=== PATIENT | male | born 1960 | race Caucasian/White ===

== ENCOUNTER 2018-08-28 17:54 | Emergency (ER) | payer OTHER ==
[~2018-08-28] VITALS: Ht 167.6 cm; Wt 79.4 kg
[2018-08-28] MEDS ORDERED: VANCOMYCIN IV 200 ML ONE (18:50)
[2018-08-28] MEDS: VANCOMYCIN IV 1,000 MG in IV DEXTROSE 5% 250 ML IV ONE (18:54)
[2018-08-28] MEDS: LIDOCAINE HCL 2% 20 ML VIAL TP ONE (18:54)
[2018-08-28] MEDS: IV NORMAL SALINE 1000 ML BAG IV ONE (18:54)
== END 2018-08-28 21:15 | disposition home or self-care (01) ==
LOC: ER 17:55
DX: L02.511 Cutaneous abscess of right hand (principal); T22.011D Burn of unspecified degree of right forearm, subsequent encounter; X58.XXXD Exposure to other specified factors, subsequent encounter
CPT/HCPCS: 10060; 96365; 96366; 99283; J3370; A4663; J7030

== ENCOUNTER 2018-10-16 14:25 | Emergency (ER) | payer MEDICAID, OTHER ==
[~2018-10-16] VITALS: Ht 167.6 cm; Wt 79.4 kg
[2018-10-16] MEDS ORDERED: FLUORESCEIN SODIUM 1 MG STRIP OP ONE (14:45)
[2018-10-16] MEDS ORDERED: TETRACAINE HCL 0.5% OPHT DROP 2 ML BOTTLE OP ONE (14:45)
[2018-10-16] MEDS ORDERED: TETRACAINE HCL 0.5% OPHT DROP 2 ML BOTTLE ONE (14:46)
[2018-10-16] MEDS ORDERED: FLUORESCEIN SODIUM 1 MG STRIP ONE (14:46)
--- NOTE | 2018-10-16 16:00 | NUR ---
CALLED [facility] AT [phone], TALKED TO LADY. FAXED THE REQUESTED INFO TO [phone] PER REQUEST. MITCHELL CANTU ALSO TALKED TO LADY AT [facility]
--- NOTE | 2018-10-16 16:18 | NUR ---
RANCHO CALLED BACK FROM [facility], NO BED AVAILABLE, . NOTIFIED.
--- NOTE | 2018-10-16 17:15 | NUR ---
Patient discharged to home in stable conditon. Written and verbal after care instructions given. Patient verbalizes understanding of instructions.COPY OF CT PROVIDED FOR PT TO FOLLOW UP AT [facility]. LEFT EYE PATCH PLACED PER PT REQUEST.
[2018-10-16 17:17] VITALS: BP 111/65
== END 2018-10-16 17:18 | disposition home or self-care (01) ==
LOC: ER 14:25
DX: T15.92XA Foreign body on external eye, part unspecified, left eye, initial encounter (principal); T17.1XXA Foreign body in nostril, initial encounter; H20.9 Unspecified iridocyclitis; I25.2 Old myocardial infarction; F17.200 Nicotine dependence, unspecified, uncomplicated; X58.XXXA Exposure to other specified factors, initial encounter; Y93.89 Activity, other specified; Y92.89 Other specified places as the place of occurrence of the external cause; Y99.8 Other external cause status
CPT/HCPCS: 70480; A4663

== ENCOUNTER 2018-11-02 00:05 | Emergency (ER) | payer OTHER ==
[~2018-11-02] VITALS: Ht 167.6 cm; Wt 79.4 kg
--- NOTE | 2018-11-02 00:15 | NUR ---
at bedside for MSE
--- NOTE | 2018-11-02 00:28 | NUR ---
Patient discharged to home in stable conditon. Written and verbal after care instructions given. Patient verbalizes understanding of instructions. Pt. d/c per MD order, d/c papers signed, all belongings w/ pt., ID band removed, ambulated off unit w/ steady gait accompanied by female agricultural research technician, BETY
== END 2018-11-02 00:30 | disposition home or self-care (01) ==
LOC: ER 00:09
DX: I80.8 Phlebitis and thrombophlebitis of other sites (principal); I25.2 Old myocardial infarction; F17.200 Nicotine dependence, unspecified, uncomplicated; F11.10 Opioid abuse, uncomplicated
CPT/HCPCS: A4663

== ENCOUNTER 2019-02-05 19:11 | Emergency (ER) | payer MEDICAID, OTHER ==
[~2019-02-05] VITALS: Ht 167.6 cm; Wt 79.4 kg
[2019-02-05] MEDS ORDERED: HYDROCODONE/APAP 10-325 MG TABLET PO ONE (20:45)
[2019-02-05] MEDS ORDERED: HYDROCODONE/APAP 10-325 MG TABLET ONE (21:06)
--- NOTE | 2019-02-05 21:11 | NUR ---
Patient discharged to home in stable conditon with friend taking patient home. Written and verbal after care instructions given. Patient verbalizes understanding of instructions. walked out of ER with no distress noted
[2019-02-05 21:12] VITALS: BP 119/78
== END 2019-02-05 21:14 | disposition home or self-care (01) ==
LOC: ER 19:11
DX: S52.92XA Unspecified fracture of left forearm, initial encounter for closed fracture (principal); M25.511 Pain in right shoulder; I25.2 Old myocardial infarction; F17.200 Nicotine dependence, unspecified, uncomplicated; F11.10 Opioid abuse, uncomplicated; I25.10 Atherosclerotic heart disease of native coronary artery without angina pectoris; V89.2XXA Person injured in unspecified motor-vehicle accident, traffic, initial encounter; Y93.89 Activity, other specified; Y92.89 Other specified places as the place of occurrence of the external cause; Y99.8 Other external cause status
CPT/HCPCS: A4663

== ENCOUNTER 2020-01-12 03:01 | Emergency (ER) | payer MEDICAID, OTHER ==
[~2020-01-12] VITALS: Ht 167.6 cm; Wt 77.1 kg
--- NOTE | 2020-01-12 03:18 | NUR ---
at bedside for MSE
[2020-01-12] MEDS ORDERED: CEphaleXIN 500 MG CAPSULE PO ONE (03:30)
[2020-01-12] MEDS ORDERED: SULFAMETH/TRIMETH 800/160 MG TABLET PO ONE (03:30)
[2020-01-12] MEDS ORDERED: TDAP DIPH,PERTUSS,TET VAC/PF 0.5 ML DISP.SYRIN IM ONE ×2 (03:30→03:32)
[2020-01-12] MEDS ORDERED: SULFAMETH/TRIMETH 800/160 MG TABLET ONE (03:32)
[2020-01-12] MEDS ORDERED: CEphaleXIN 500 MG CAPSULE ONE (03:32)
[2020-01-12 05:23] VITALS: BP 125/80
--- NOTE | 2020-01-12 05:25 | NUR ---
Patient given written and verbal discharge instructions. Rx given, took all belongings, no signs of distress noted. Patient verbalizes understanding of instructions. Patient is ambulatory with steady gait. Refuses offer of intermediate placement. Patient given list of available shelters in surrounding area.
== END 2020-01-12 05:27 | disposition home or self-care (01) ==
LOC: ER 03:03
DX: L03.90 Cellulitis, unspecified (principal); S81.802A Unspecified open wound, left lower leg, initial encounter; S81.801A Unspecified open wound, right lower leg, initial encounter; X58.XXXA Exposure to other specified factors, initial encounter; Y92.89 Other specified places as the place of occurrence of the external cause; Z59.0 Homelessness; I25.2 Old myocardial infarction; Z95.5 Presence of coronary angioplasty implant and graft; E78.5 Hyperlipidemia, unspecified
CPT/HCPCS: 90715; A4663